=== PATIENT | female | born 1955 | race Caucasian/White ===

== ENCOUNTER 2022-02-03 09:55 | Inpatient (IN) | payer OTHER, MEDICARE ==
[2022-02-03] MEDS ORDERED: Ondansetron ODT 4 MG TAB PO PRN (13:16)
[2022-02-03] MEDS ORDERED: Acetaminophen 325 MG TAB PO PRN (13:16)
[2022-02-03] MEDS ORDERED: Ondansetron PF 4 MG/2 ML Vial IVP PRN (13:16)
[2022-02-03 13:42] VITALS: BMI 22.3
[2022-02-03] MEDS ORDERED: Lorazepam 1 MG TAB PO PRN (14:32)
[2022-02-03] MEDS ORDERED: Melatonin 3 MG TAB PO PRN (14:38)
[2022-02-03 15:29] LABS: Magnesium 1.5 mg/dL (1.6-2.6); Phosphorus 3.2 mg/dL (2.3-4.7)
[2022-02-03 16:06] LABS: #Lymphocytes 1.8 thou/uL (1.20-3.40); #Monocytes 0.3 thou/uL (0.11-0.59); #Neutrophils 4.1 thou/uL (1.40-6.50); %Basophils 0.6 % (0.0-1.0); %Lymphocytes 29.4 % (21.0-51.0); %Monocytes 4.7 % (0.0-10.0); %Neutrophils 65.3 % (42.0-75.0); Hemoglobin 5.5 g/dL (12.0-16.0); Mean Corpuscular HGB CONC 31.6 g/dL (32.0-36.0); Mean Platelet Volume 7.2 fL (7.4-10.4); Platelet Count 456 thou/uL (130-400); RBC Distribution Width 22.5 % (11.5-14.5); Red Blood Cell (RBC) Count 1.83 mill/uL (4.20-5.40); White Blood Cell (WBC) Count 6.2 thou/uL (4.8-10.8)
[2022-02-03 16:17] LABS: Iron Binding Capacity, Total 198 mcg/dL (265-497)
[2022-02-03 16:18] LABS: Iron 42 ug/dL (50-170)
[2022-02-03 17:08] LABS: Reticulocyte Count 2.3 % (0.5-1.5)
[2022-02-03] MEDS: Nicotine 14 MG PATCH TD SCH (17:10)
[2022-02-03] MEDS ORDERED: Atorvastatin Calcium 20 MG TAB PO SCH (21:00)
[2022-02-03] MEDS: Amoxicillin/Potassium Clav 875 MG TAB PO SCH (21:42)
[2022-02-04 05:19] LABS: Magnesium 1.9 mg/dL (1.6-2.6)
[2022-02-04 05:52] LABS: #Lymphocytes 2.3 thou/uL (1.20-3.40); #Monocytes 0.2 thou/uL (0.11-0.59); #Neutrophils 4.7 thou/uL (1.40-6.50); %Basophils 0.3 % (0.0-1.0); %Eosinophils 0.5 % (0.0-10.0); %Monocytes 2.2 % (0.0-10.0); %Neutrophils 64.9 % (42.0-75.0); Hemoglobin 10.4 g/dL (12.0-16.0); Mean Corpuscular HGB CONC 33.1 g/dL (32.0-36.0); Mean Corpuscular Hemoglobin 30.4 pg (27.0-31.0); Mean Platelet Volume 6.7 fL (7.4-10.4); Platelet Count 441 thou/uL (130-400); RBC Distribution Width 18.6 % (11.5-14.5); Red Blood Cell (RBC) Count 3.43 mill/uL (4.20-5.40); White Blood Cell (WBC) Count 7.2 thou/uL (4.8-10.8)
[2022-02-04] MEDS ORDERED: Levothyroxine Sodium 50 MCG TAB PO SCH (06:00)
[2022-02-04 07:17] LABS: ALT (SGPT) Less than 7 U/L (8-55); AST (SGOT) 10 U/L (5-34); Albumin 2.7 g/dL (3.4-4.8); Alkaline Phosphatase 93 U/L (40-110); Anion Gap 15 mmol/L (10-20); BUN (Urea Nitrogen) 12 mg/dL (9.8-20.1); Bilirubin, Total 0.7 mg/dL (0.2-1.2); Calc. Creatinine Clearance 50 mL/min (70-130); Calcium 8.6 mg/dL (7.8-10.44); Carbon Dioxide 26 mmol/L (23-31); Chloride 97 mmol/L (98-107); Estimated GFR 61; Globulin 2.2 g/dL (2.4-3.5); Glucose 95 mg/dL (80-115); Protein, Total 4.9 g/dL (5.8-8.1); Sodium 135 mmol/L (136-145)
[2022-02-04] MEDS ORDERED: Saccharomyces boulardii 250 MG CAP PO SCH (09:00)
[2022-02-04] MEDS ORDERED: Enoxaparin Sodium 40 MG/0.4 ML SYRINGE SC SCH (09:00)
[2022-02-04] MEDS ORDERED: MULTIVIT/IRON SULF/FOLIC ACID 1 EACH TAB PO SCH (09:00)
[2022-02-04] MEDS ORDERED: Thiamine 100 MG TAB PO SCH (09:00)
[2022-02-04] MEDS ORDERED: Loratadine 10 MG TAB PO SCH (09:00)
[2022-02-04] MEDS: Amoxicillin/Potassium Clav 875 MG TAB PO SCH (09:53)
[2022-02-04] MEDS: Nicotine 14 MG PATCH TD SCH (14:26)
[2022-02-04 15:20] LABS: Hemoglobin 11.1 g/dL (12.0-16.0)
[2022-02-04] MEDS ORDERED: Potassium Chloride 20 MEQ TAB PO SCH (16:00)
[2022-02-04 16:29] VITALS: BP 98/64; TEMP 97.4
== END 2022-02-04 18:32 | disposition home or self-care (01) | DRG 812 ==
LOC: T4-A 12:12
PROVIDERS: ADMIT Student in an Organized Health Care Education/Training Program; ATTEND Family Medicine
PROC: 30233N1 Transfusion of Nonautologous Red Blood Cells into Peripheral Vein, Percutaneous Approach (ICD-10-PCS; principal; 2022-02-03)
DX: D53.9 Nutritional anemia, unspecified (principal); E46 Unspecified protein-calorie malnutrition; Z20.822 Contact with and (suspected) exposure to COVID-19; I10 Essential (primary) hypertension; E78.5 Hyperlipidemia, unspecified; F41.1 Generalized anxiety disorder; K21.9 Gastro-esophageal reflux disease without esophagitis; F10.10 Alcohol abuse, uncomplicated; F17.210 Nicotine dependence, cigarettes, uncomplicated; D75.839 Thrombocytosis, unspecified; K57.90 Diverticulosis of intestine, part unspecified, without perforation or abscess without bleeding; S91.052A Open bite, left ankle, initial encounter; Z88.0 Allergy status to penicillin; Z79.899 Other long term (current) drug therapy; Z79.82 Long term (current) use of aspirin; Z90.89 Acquired absence of other organs; Z82.49 Family history of ischemic heart disease and other diseases of the circulatory system; Z82.69 Family history of other diseases of the musculoskeletal system and connective tissue; Z83.49 Family history of other endocrine, nutritional and metabolic diseases; Z68.22 Body mass index [BMI] 22.0-22.9, adult; Z71.6 Tobacco abuse counseling; W54.0XXA Bitten by dog, initial encounter
CPT/HCPCS: 36415; 36430; 80053; 82274; 82728; 83540; 83550; 83735; 84100; 85025; 85046; 86850; 86900; 86901; 87070; 87077; 87186; 87205; 97139; J3475; J3490; P9016; Q0162; U0003; U0005